=== PATIENT | female | born 1935 | race Caucasian/White ===

== ENCOUNTER → 2020-06-08 11:29 | Outpatient (CLI) | payer MEDICARE, OTHER, SELFPAY ==
--- NOTE | ~2020-06-08 | MR_ITS ---
EXAMINATION: MR lumbar spine wo con DATE: 06/08/2020 12:13 INDICATION: Nontraumatic compression fracture of L2 vertebral body. Low back pain. TECHNIQUE: Magnetic resonance imaging (MRI) of the lumbar spine was performed without intravenous con trast. Sequences included sagittal T2-weighted FSE, sagittal T2-weighted FS FSE, sagittal T1-weighted FSE, and axial T2-weighted FSE. COMPARISON: None FINDINGS: There is 13 degrees levoscoliosis of lumbar spine. There is 4 mm retrolisthesis of T12 on L 1 and L1 on L2. There is 6 mm anterolisthesis of L4 on L5 and L5 on S1. There is mild chronic anterio r wedging of T12-L1 vertebral bodies. There is a burst fracture of inferior endplate of L2 with 2/5 l oss of height, bone marrow edema, and retropulsion of bone 4 mm into central spinal canal. There is s everely decreased disc height at T12-L1, moderately decreased disc height at L1-L2, mildly decreased disc height at L2-L3, severely decreased disc height at L3-L4, and moderately decreased disc height a t L4-L5 and L5-S1 with endplate remodeling. The distal spinal cord signal intensity is normal. The co nus medullaris is at L1-L2. The gallbladder is distended, likely secondary to fasting. The following disc levels are specifically discussed: L1-L2: The disc is bulging. There is severe right and moderate left facet joint osteoarthritis. There is moderate bilateral neural foraminal stenosis. There is mild central canal stenosis. L2-L3: The disc is bulging and has an annular fissure. There is severe bilateral facet joint osteoart hritis. There is moderate right and mild left neural foraminal stenosis. There is mild central canal stenosis. L3-L4: The disc is bulging. There is severe bilateral facet joint osteoarthritis. There is mild right and moderate left neural foraminal stenosis. There is mild central canal stenosis. L4-L5: The disc does not extend beyond the endplate margins. There is severe bilateral facet joint os teoarthritis. There is mild bilateral neural foraminal stenosis. There is mild central canal stenosis . L5-S1: The disc does not extend beyond the endplate margin. There is severe bilateral facet joint ost eoarthritis. There is mild bilateral neural foraminal stenosis. There is no central canal stenosis. IMPRESSION: 1. Acute versus subacute L2 burst fracture. 2. Severe lumbar spondylosis. 3. Lumbar levoscoliosis. Reviewed, dictated and finalized at location A. [employer]
== END ==
DX: S32.021A Stable burst fracture of second lumbar vertebra, initial encounter for closed fracture (principal); M47.816 Spondylosis without myelopathy or radiculopathy, lumbar region; M41.86 Other forms of scoliosis, lumbar region
CPT/HCPCS: 72148